=== PATIENT | female | born 1990 | race Caucasian/White ===

== ENCOUNTER 2019-09-24 10:01 | Emergency (ER) | payer OTHER ==
[~2019-09-24] VITALS: Ht 160 cm; Wt 54.9 kg
[2019-09-24] MEDS ORDERED: ACID REDUCER20 M1 PO (10:26)
[2019-09-24] MEDS ORDERED: DICY20TA PO (10:27)
[2019-09-24] MEDS ORDERED: [UNRECOGNIZED DRUG - OTHER] TOP (10:27)
== END 2019-09-24 16:12 | disposition home or self-care (01) ==
LOC: ER 10:01
DX: K52.9 Noninfective gastroenteritis and colitis, unspecified (principal)